=== PATIENT | female | born 1980 | race African-American/Black ===

== ENCOUNTER 2019-11-10 16:27 | Emergency (ER) | payer BC ==
[~2019-11-10] VITALS: Ht 165.1 cm; Wt 61.2 kg
[2019-11-10] MEDS ORDERED: AMOXIL 875 MG875 M1 PO (16:32)
[2019-11-10] MEDS ORDERED: PROMETH-CODEIN 65 ML PO (18:16)
[2019-11-10] MEDS ORDERED: TAMIFLU75 MG PO (18:16)
[2019-11-10 18:49] VITALS: BP 141/69
== END 2019-11-10 18:45 | disposition home or self-care (01) ==
LOC: ER 16:27
DX: R05 Cough (principal); J34.89 Other specified disorders of nose and nasal sinuses; R07.9 Chest pain, unspecified; Z98.82 Breast implant status